=== PATIENT | female | born 1975 | race Caucasian/White ===

== ENCOUNTER 2023-01-29 08:56 | Outpatient (CLI) | payer OTHER, SELFPAY | END 2023-01-29 08:57 | disposition home or self-care (01) | LOC: NFLDREF 01-31 06:40 | PROVIDERS: PCP Family Medicine; Referring Provider Family Medicine; Visit Provider Family Medicine | DX: I10 Essential (primary) hypertension (principal); F60.3 Borderline personality disorder; G43.109 Migraine with aura, not intractable, without status migrainosus; Z51.81 Encounter for therapeutic drug level monitoring | CPT/HCPCS: 80053; 80061; 80175; 82043; 82306; 82570; 83735; 87086 ==

== ENCOUNTER 2024-07-12 14:06 | Emergency (ER) | payer OTHER, MEDICAID, SELFPAY ==
[2024-07-12 14:13] VITALS: BP 121/78; PULSE 66; RESP 12; TEMP 36.8; O2SAT 98; BMI 24.0
[2024-07-12 16:20] VITALS: BP 109/79; PULSE 64; RESP 16; O2SAT 98
--- NOTE | 2024-07-12 16:42 | ED_ITS ---
HPI - General Adult General Chief complaint: Headache/Migraine Stated complaint: Headache, generalized pain, has chronic headaches Time Seen by Provider: 07/12/24 16:18 Source: patient Mode of arrival: ambulatory Limitations: no limitations History of Present Illness HPI narrative: 49-year-old female presenting today with headache. Patient does have history of chronic pain and recurrent chronic headaches for the last several years. She has had this headache now for several weeks. She states that she has not tried Tylenol or ibuprofen and she does not take any headache medications. She has been trying to get into her primary care provider or her neurologist and they do not have appointments available until July. She was instructed to come to the ER if she is having significant discomfort. She denies nausea or vomiting. She denies fevers, chills, vision changes or ringing in her ears. This headache is not new or different from previous headaches. She does have chronic body aches which are not new. No difficulty speaking, no neurologic deficits. Related Data Home Medications ?Medication ?Instructions ?Recorded ?Confirmed gabapentin 300 mg capsule 300 mg PO TID 12/16/22 07/12/24 nadolol 40 mg tablet 40 mg PO DAILY 12/16/22 07/12/24 Previous Rx's ?Medication ?Instructions ?Recorded bupropion HCl 300 mg 24 hr tablet, 300 mg PO DAILY #90 tabs 01/27/23 extended release lamotrigine 100 mg tablet 150 mg (1.5 x 100 mg) PO DAILY 01/27/23 #135 tabs acyclovir 400 mg tablet 400 mg PO BID #180 tabs 02/10/23 zolpidem 5 mg tablet 5 mg PO QHS PRN insomnia #30 tabs 03/01/23 estradiol 2 mg tablet 2 mg PO DAILY #90 tabs 03/08/23 verapamil 40 mg tablet 40 mg PO DAILY #90 tabs 03/08/23 Allergies Allergy/AdvReac Type Severity Reaction Status Date / Time Quinolones Allergy Intermediate Depression Verified 07/12/24 14:19 diphenhydramine Allergy Mild Verified 07/12/24 14:19 aripiprazole Allergy Verified 07/12/24 14:19 ciprofloxacin Allergy Verified 07/12/24 14:19 prochlorperazine Allergy Verified 07/12/24 14:19 Review of Systems Status of ROS: Reports: 10 or more systems reviewed and unremarkable except as noted in History and below [facility] Medical History Sinusitis ?J32.9 - Chronic sinusitis, unspecified (ICD-10) Numbness and tingling of right arm ?R20.0 - Anesthesia of skin (ICD-10) ?R20.2 - Paresthesia of skin (ICD-10) Hyperplastic colon polyp ?K63.5 - Polyp of colon (ICD-10) Recurrent HSV (herpes simplex virus) ?B00.9 - Herpesviral infection, unspecified (ICD-10) Hx of insomnia ?Z87.898 - Personal history of other specified conditions (ICD-10) Occipital neuralgia of right side ?M54.81 - Occipital neuralgia (ICD-10) HENRY (generalized anxiety disorder) ?F41.1 - Generalized anxiety disorder (ICD-10) Impulse control disorder ?F63.9 - Impulse disorder, unspecified (ICD-10) Borderline personality disorder ?F60.3 - Borderline personality disorder (ICD-10) PTSD (post-traumatic stress disorder) ?F43.10 - Post-traumatic stress disorder, unspecified (ICD-10) History of environmental allergies ?Z91.09 - Other allergy status, other than to drugs and biological substances (ICD-10) Occipital neuralgia ?M54.81 - Occipital neuralgia (ICD-10) History of palpitations ?Z87.898 - Personal history of other specified conditions (ICD-10) Surgical History Hx of esophagogastroduodenoscopy ?Z98.890 - Other specified postprocedural states (ICD-10) Status post laparoscopic cholecystectomy ?Z90.49 - Acquired absence of other specified parts of digestive tract (ICD- 10) History of total vaginal hysterectomy (TVH) (12/19/08) ?Z90.710 - Acquired absence of both cervix and uterus (ICD-10) History of laparoscopy (11/03/08) ?Z98.890 - Other specified postprocedural states (ICD-10) History of laparoscopic appendectomy (2008) ?Z90.49 - Acquired absence of other specified parts of digestive tract (ICD- 10) History of section (04/01/06) ?Z98.891 - History of uterine scar from previous surgery (ICD-10) Family History Mother Glioblastoma Lung cancer Alcohol dependence Father Alcohol dependence Brother Psychiatric illness Maternal Grandmother Lung cancer Alcohol dependence Maternal Grandfather No problems noted. Paternal Grandfather Alcohol dependence Sister Psychiatric illness Aunt Psychiatric illness Uncle Psychiatric illness Aunt Breast cancer Social History Smoking Status: Former smoker Do you use any of these nicotine containing products: None How often do you have a drink containing alcohol: monthly or less How often do you have six or more drinks on one occasion: Never AUDIT-C Alcohol total score: 1 Non-prescribed substance use: marijuana (any form) Exam Narrative: Exam Narrative: Well-nourished well-developed patient, tearful. Alert and oriented. Answers questions appropriately. Thoughts are goal oriented and rational. No tangential or magical thinking noted. Patient speaks in full sentences without needing to catch her breath. HEENT: Normocephalic atraumatic. Pupils are equally round reactive to light. Extraocular muscles are intact. Conjunctivae are moist without any icterus noted. Moist mucous membranes. Posterior pharynx is normal. Neck is soft without any lymphadenopathy or thyromegaly. No masses are appreciated. Cardiovascular: Heart is regular rate and rhythm S1 and S2 are present without any murmurs. Lungs: Clear to auscultation bilaterally no wheezes rhonchi or rales are appreciated. Patient takes deep breaths without any discomfort. Extremities: Bilateral lower extremities are without edema. Skin: Well perfused. Const: Vital Signs, click to edit/add: Vital Signs - 24 hr 07/12/24 14:13 07/12/24 16:20 Temperature 98.2 F Pulse Rate [Pulse Oximeter] 66 64 Respiratory Rate 12 16 Blood Pressure [Ri ght Upper Arm] 121/78 109/79 Pulse Oximetry 98 98 Oxygen Delivery Me thod Room Air Course Course ED Course: We discussed doing a migraine cocktail which patient was in agreement to. Nurse informed me that when she went in to start the IV to give the medications patient became more tearful and stated that she did want any of the medications. She requested that instead she would have a Toradol and Zofran orally, refused the dexamethasone. Benadryl was not ordered as patient has an allergy to diphenhydramine. Therefore, she was given oral tablet of Toradol and oral tablet of Zofran. Vital Signs Vital signs: Initial Vital Signs Temperature 98.2 F 07/12/24 14:13 Temperature Source Temporal Artery Scan 07/12/24 14:13 Pulse Rate 66 07/12/24 14:13 Respiratory Rate 12 07/12/24 14:13 Blood Pressure 121/78 07/12/24 14:13 Blood Pressure Mean 92 07/12/24 14:13 Blood Pressure Position Sitting 07/12/24 14:13 Pulse Oximetry 98 07/12/24 14:13 Oxygen Delivery Method Room Air 07/12/24 14:13 Vital Signs Temperature 98.2 F 07/12/24 14:13 Pulse Rate 66 07/12/24 14:13 Respiratory Rate 12 07/12/24 14:13 Blood Pressure 121/78 07/12/24 14:13 Pulse Oximetry 98 07/12/24 14:13 Oxygen Delivery Method Room Air 07/12/24 14:13 Temperature 98.2 F 07/12/24 14:13 Pulse Rate 64 07/12/24 16:20 Respiratory Rate 16 07/12/24 16:20 Blood Pressure 109/79 07/12/24 16:20 Pulse Oximetry 98 07/12/24 16:20 Oxygen Delivery Method Room Air 07/12/24 14:13 Medical Decision Making MDM Narrative Medical decision making narrative: 49-year-old female presenting with headache. Treatment per above. Recommended attempting Tylenol or ibuprofen as this has not been done for her headaches before. Follow-up as scheduled with PCP. Discharge Plan Discharge Clinical Impression: Chronic headache Patient Disposition: Home, Self-Care Condition: Stable Additional Instructions: At this time, would recommend continuing your gabapentin and taking Tylenol and/or ibuprofen as needed/as directed for headaches. Can also try things like Excedrin migraine. Okay to return to the ER if pain is not well controlled and you would like to try IV treatment. Follow-up with your primary care provider and/or neurologist. Prescriptions: No Action gabapentin 300 mg capsule 300 mg PO TID nadolol 40 mg tablet 40 mg PO DAILY lamotrigine 100 mg tablet 150 mg PO DAILY Qty: 135 1RF bupropion HCl 300 mg tablet extended release 24 hr 300 mg PO DAILY Qty: 90 1RF acyclovir 400 mg tablet 400 mg PO BID Qty: 180 3RF zolpidem 5 mg tablet 5 mg PO QHS PRN (Reason: insomnia) Qty: 30 0RF verapamil 40 mg tablet 40 mg PO DAILY Qty: 90 1RF estradiol 2 mg tablet 2 mg PO DAILY Qty: 90 1RF Follow Up/Referrals: Provider,Not a Local [Primary Care Provider] - Stand Alone Forms: [employer] Info Instructions
[2024-07-12] MEDS: KETOROLAC 10 MG TABLET PO (16:51)
[2024-07-12] MEDS: ONDANSETRON ODT 4 MG TAB PO (16:51)
== END 2024-07-12 17:15 | disposition home or self-care (01) ==
LOC: ED 17:08
PROVIDERS: Emergency Provider Family Medicine; PCP Surgery
DX: R51.9 Headache, unspecified (principal)
CPT/HCPCS: 96374; 96375; 99284; A9270